=== PATIENT | female | born 1950 | race Caucasian/White ===

== ENCOUNTER 2017-04-22 19:39 | Inpatient (IN) | payer OTHER ==
[~2017-04-22] VITALS: Ht 149.9 cm; Wt 59.7 kg
[2017-04-22 21:02] LABS: EOSINOPHIL (%) 0.3 % (0-5); HEMATOCRIT 38.1 % (36.0-46.0); IMMATURE GRANULOCYTE (%) 0.3 % (0.0-0.7); INSTRUMENT ABS NEUTROPHIL CT 7.4 K/uL; LYMPHOCYTE COUNT 0.8 K/uL (1.0-2.8); MCHC 33.1 G/DL (30.0-36.0); MCV 87.8 FL (83-99); MEAN PLAT.VOLUME 8.6 uM^3 (9.5-12.4); MONOCYTE (%) 6.5 % (3-12); MONOCYTE COUNT 0.6 K/uL (0-0.8); NEUTROPHIL (%) 83.8 % (45-76); NEUTROPHIL COUNT 7.4 K/uL (1.8-6.4); PLATELET COUNT 274 K/uL (156-360); RBC DIS.WIDTH-CV 12.6 % (11.8-14.6); RBC DIS.WIDTH-SD 40.7 % (39-53); RED BLOOD COUNT 4.34 M/uL (3.80-5.20); WHITE BLOOD COUNT 8.8 K/uL (4.1-10.2)
[2017-04-22 21:13] LABS: CHLORIDE 106 mEq/L (99-109); POTASSIUM 5.1 mEq/L (3.7-5.4); SODIUM 141 mEq/L (136-147)
[2017-04-22 21:16] LABS: GLUCOSE 123 mg/dL (70-99)
[2017-04-22 21:17] LABS: ANION GAP 11 MEQ/L (2-14)
[2017-04-22 21:18] LABS: TOTAL BILIRUBIN 0.3 mg/dL (0.0-1.0)
[2017-04-22 21:19] LABS: ALKALINE PHOSPHATASE 95 IU/L (3-129); GFR ESTIMATE (CALCULATED) 40 mL/min/
[2017-04-22 21:20] LABS: UREA NITROGEN (BUN) 14 mg/dL (9-23)
[2017-04-22 21:23] LABS: LIPASE 64 U/L (1.0-51.0)
[2017-04-22] MEDS ORDERED: NUCYNTA100 MG PO (22:49)
[2017-04-22] MEDS ORDERED: CELECOXIB200 MG PO (22:49)
[2017-04-22] MEDS ORDERED: ZONISAMIDE100 MG PO (22:49)
[2017-04-22] MEDS ORDERED: ONE DAILY FOR1 EAC1 PO (22:50)
[2017-04-22] MEDS ORDERED: ALENDRONATE SOD70 MG PO (22:50)
[2017-04-22] MEDS ORDERED: DESYREL100 MG PO (22:51)
[2017-04-22] MEDS ORDERED: CITRACAL W/V1 TABLE1 PO (22:51)
[2017-04-22] MEDS ORDERED: ZYRTEC10 M3 PO (22:52)
[2017-04-22] MEDS ORDERED: ASTEPRO 0.15%30 ML BOTH NARES (22:52)
[2017-04-22] MEDS ORDERED: EPIPEN ADU0.3 MG/0.3 IM (22:53)
[2017-04-22 22:55] LABS: ADD MIUA? YES; BILIRUBIN NEGATIVE; BLOOD NEGATIVE; COLOR YELLOW ((YELLOW)); GLUCOSE (STRIP) NEGATIVE; KETONES NEGATIVE; LEUKOCYTES LARGE; NITRITE NEGATIVE; PROTEIN (STRIP) NEGATIVE; SPECIFIC GRAVITY 1.011 (1.000-1.030); UROBILINOGEN 0.2 MG/DL (0.2-1.0)
[2017-04-22 22:59] LABS: BACTERIA RARE /HPF; EPITHELIAL CELLS RARE /HPF; MUCUS TRACE /LPF; RED BLOOD CELLS 0-5 /HPF (0-5)
[2017-04-23 03:14] VITALS: BP 134/82
[2017-04-23 06:55] LABS: EOSINOPHIL (%) 0.3 % (0-5); HEMATOCRIT 31.2 % (36.0-46.0); IMMATURE GRANULOCYTE (%) 0.3 % (0.0-0.7); LYMPHOCYTE COUNT 1.4 K/uL (1.0-2.8); MCH 29.2 PG (29.0-34.0); MCV 88.4 FL (83-99); MEAN PLAT.VOLUME 8.7 uM^3 (9.5-12.4); MONOCYTE (%) 9.2 % (3-12); MONOCYTE COUNT 0.7 K/uL (0-0.8); NEUTROPHIL (%) 70.7 % (45-76); PLATELET COUNT 234 K/uL (156-360); RED BLOOD COUNT 3.53 M/uL (3.80-5.20); WHITE BLOOD COUNT 7.1 K/uL (4.1-10.2)
[2017-04-23 06:57] LABS: ANION GAP 5 MEQ/L (2-14); CHLORIDE 115 MEQ/L (99-109); POTASSIUM 4.2 MEQ/L (3.7-5.4); SAMPLE HEMOLYSIS CHECK 0; SAMPLE ICTERIC CHECK 0; SAMPLE LIPEMIA CHECK 0; SODIUM 142 MEQ/L (136-147); UREA NITROGEN (BUN) 12 mg/dL (9-23)
[2017-04-23 07:03] LABS: GFR ESTIMATE (CALCULATED) > 59 mL/min/; GLUCOSE 91 mg/dL (70-99)
[2017-04-23 07:28] VITALS: BP 137/70
[2017-04-23 11:11] VITALS: BP 135/66
[2017-04-23 16:10] VITALS: BP 119/74
[2017-04-23 20:04] VITALS: BP 122/72
[2017-04-24 00:15] VITALS: BP 133/77
[2017-04-24 06:59] LABS: ANION GAP 6 MEQ/L (2-14); CHLORIDE 112 MEQ/L (99-109); GFR ESTIMATE (CALCULATED) > 59 mL/min/; GLUCOSE 86 mg/dL (70-99); POTASSIUM 3.8 MEQ/L (3.7-5.4); SAMPLE HEMOLYSIS CHECK 0; SAMPLE ICTERIC CHECK 0; SAMPLE LIPEMIA CHECK 0; SODIUM 140 MEQ/L (136-147); UREA NITROGEN (BUN) 9 mg/dL (9-23)
[2017-04-24 07:27] VITALS: BP 133/79
[2017-04-24] MEDS ORDERED: TAMSULOSIN HCL0.4 MG PO ×2 (11:19→13:18)
[2017-04-24] MEDS ORDERED: CIPRO500 MG PO ×2 (11:19→13:18)
[2017-04-24] MEDS ORDERED: DILAUDID2 MG PO ×2 (11:19→13:18)
== END 2017-04-24 14:39 | disposition home or self-care (01) | DRG 694 ==
LOC: EME 19:39 → EDOF 04-23 00:20 → 3EAST 04-23 00:20
PROVIDERS: Hospitalist; Internal Medicine; Physician Assistant
DX: N13.2 Hydronephrosis with renal and ureteral calculous obstruction (principal); N39.0 Urinary tract infection, site not specified; N17.9 Acute kidney failure, unspecified; M47.816 Spondylosis without myelopathy or radiculopathy, lumbar region; G89.29 Other chronic pain; K76.89 Other specified diseases of liver; E66.9 Obesity, unspecified; K57.90 Diverticulosis of intestine, part unspecified, without perforation or abscess without bleeding; Z90.710 Acquired absence of both cervix and uterus
CPT/HCPCS: 74176; 80048; 80053; 81003; 83690; 85025; 87086; 93005; 99281; 99285; J0696; J1170; J1644; J1885; J2270; J2405; J3010; J7030; J7050

== ENCOUNTER 2017-06-16 03:20 | Inpatient (IN) | payer OTHER ==
[~2017-06-16] VITALS: Ht 149.9 cm; Wt 54.5 kg
[~2017-06-16 03:20] MED LIST: ALENDRONATE SOD70 MG PO; ASTEPRO 0.15%30 ML BOTH NARES; CELECOXIB200 MG PO; CIPRO500 MG PO; CITRACAL W/V1 TABLE1 PO; DESYREL100 MG PO; DILAUDID2 MG PO; EPIPEN ADU0.3 MG/0.3 IM; NUCYNTA100 MG PO; ONE DAILY FOR1 EAC1 PO; TAMSULOSIN HCL0.4 MG PO; ZONISAMIDE100 MG PO; ZYRTEC10 M3 PO
[2017-06-16 03:48] LABS: HEMATOCRIT 38.2 % (36.0-46.0); MCHC 33.5 G/DL (30.0-36.0); MCV 86.6 FL (83-99); MEAN PLAT.VOLUME 8.6 uM^3 (9.5-12.4); PLATELET COUNT 293 K/uL (156-360); RBC DIS.WIDTH-CV 12.4 % (11.8-14.6); RBC DIS.WIDTH-SD 39.6 % (39-53); RED BLOOD COUNT 4.41 M/uL (3.80-5.20); WHITE BLOOD COUNT 15.1 K/uL (4.1-10.2)
[2017-06-16 03:54] LABS: CHLORIDE 104 mEq/L (99-109); POTASSIUM 4.2 mEq/L (3.7-5.4); SODIUM 137 mEq/L (136-147)
[2017-06-16 03:56] LABS: GLUCOSE 139 mg/dL (70-99)
[2017-06-16 03:57] LABS: ANION GAP 12 MEQ/L (2-14)
[2017-06-16 03:58] LABS: TOTAL BILIRUBIN 0.3 mg/dL (0.0-1.0)
[2017-06-16 03:59] LABS: ALKALINE PHOSPHATASE 103 IU/L (3-129)
[2017-06-16 04:00] LABS: GFR ESTIMATE (CALCULATED) 43 mL/min/
[2017-06-16 04:01] LABS: UREA NITROGEN (BUN) 15 mg/dL (9-23)
[2017-06-16 04:03] LABS: LIPASE 16 U/L (1.0-51.0)
[2017-06-16 04:58] LABS: ADD MIUA? YES; BILIRUBIN NEGATIVE; BLOOD NEGATIVE; COLOR STRAW ((YELLOW)); GLUCOSE (STRIP) NEGATIVE; KETONES 5; LEUKOCYTES LARGE; NITRITE NEGATIVE; PROTEIN (STRIP) NEGATIVE; SPECIFIC GRAVITY 1.011 (1.000-1.030); UROBILINOGEN 0.2 MG/DL (0.2-1.0)
[2017-06-16 05:03] LABS: BACTERIA RARE /HPF; EPITHELIAL CELLS RARE /HPF; HYALINE CASTS 0-5 /LPF; MUCUS TRACE /LPF; RED BLOOD CELLS 0-5 /HPF (0-5); UCUL ADDED? YES
[2017-06-16 11:20] VITALS: BP 108/62
[2017-06-16 16:05] VITALS: BP 110/67
[2017-06-16 19:32] VITALS: BP 114/63
[2017-06-16 22:40] VITALS: BP 132/81
[2017-06-17 03:02] VITALS: BP 122/78
[2017-06-17 06:47] VITALS: BP 116/77
[2017-06-17 06:51] LABS: EOSINOPHIL (%) 1.2 % (0-5); EOSINOPHIL COUNT 0.1 K/uL (0-0.3); HEMATOCRIT 30.3 % (36.0-46.0); IMMATURE GRANULOCYTE (%) 0.5 % (0.0-0.7); INSTRUMENT ABS NEUTROPHIL CT 4.1 K/uL; LYMPHOCYTE COUNT 1.2 K/uL (1.0-2.8); MCH 30.1 PG (29.0-34.0); MCV 88.6 FL (83-99); MONOCYTE (%) 8.3 % (3-12); MONOCYTE COUNT 0.5 K/uL (0-0.8); NEUTROPHIL COUNT 4.1 K/uL (1.8-6.4); RBC DIS.WIDTH-CV 12.7 % (11.8-14.6); RBC DIS.WIDTH-SD 41.2 % (39-53); WHITE BLOOD COUNT 5.9 K/uL (4.1-10.2)
[2017-06-17 07:11] LABS: ANION GAP 6 MEQ/L (2-14); CHLORIDE 110 MEQ/L (99-109); GLUCOSE 121 mg/dL (70-99); POTASSIUM 4.1 MEQ/L (3.7-5.4); SAMPLE HEMOLYSIS CHECK 0; SAMPLE ICTERIC CHECK 0; SAMPLE LIPEMIA CHECK 0; SODIUM 142 MEQ/L (136-147); UREA NITROGEN (BUN) 10 mg/dL (9-23)
[2017-06-17 07:13] LABS: MEAN PLAT.VOLUME 8.7 uM^3 (9.5-12.4); PLAT.SUFFICIENCY ADEQUATE
[2017-06-17 07:22] LABS: GFR ESTIMATE (CALCULATED) > 59 mL/min/
[2017-06-17 07:32] LABS: PLATELET COUNT 197 K/uL (156-360); RED BLOOD COUNT 3.42 M/uL (3.80-5.20)
[2017-06-17 08:10] VITALS: BP 116/77
[2017-06-17] MEDS ORDERED: TAMSULOSIN HCL0.4 MG PO (11:00)
[2017-06-17] MEDS ORDERED: KEFLEX500 MG PO (11:05)
== END 2017-06-17 12:41 | disposition home or self-care (01) | DRG 690 ==
LOC: EME 03:20 → EDOF 07:38 → ENRESERV 07:42 → 2EAST 08:50
PROVIDERS: Emergency Medicine; Hospitalist
DX: N13.6 Pyonephrosis (principal); G89.29 Other chronic pain; M47.816 Spondylosis without myelopathy or radiculopathy, lumbar region; M47.812 Spondylosis without myelopathy or radiculopathy, cervical region
CPT/HCPCS: 74176; 80048; 80053; 81003; 83605; 83690; 85025; 85027; 87040; 87077; 87086; 99202; 99281; 99284; J0692; J1170; J1644; J1885; J2270; J2405; J7030; J7050